=== PATIENT | male | born 1955 | race Caucasian/White ===

== ENCOUNTER 2022-01-14 13:35 | Inpatient (IN) | payer MEDICARE ==
[~2022-01-14] VITALS: Ht 165.1 cm; Wt 77.1 kg
[2022-01-14 14:27] LABS: HEMOGLOBIN 15.1 gm/dl (14.0-17.5); RED BLOOD COUNT 4.89 M/UL (4.20-5.50); WHITE BLOOD COUNT 12.7 K/UL (4.5-11.0)
[2022-01-14] MEDS ORDERED: COZAAR50 MG PO (15:16)
[2022-01-14] MEDS ORDERED: ASPIRIN EC81 MG PO (17:03)
[2022-01-14] MEDS ORDERED: ATORVASTATIN CA10 MG PO (17:03)
[2022-01-14] MEDS ORDERED: NITROGLYCERIN0.4 MG SL (19:04)
[2022-01-14] MEDS ORDERED: HEPARIN SO5000 UNIT2 IVP (19:04)
== END 2022-01-14 20:29 | disposition short-term general hospital (02) | DRG 287 ==
LOC: ER1 13:35 → CDU 15:13
PROVIDERS: Emergency Medicine; ADMIT Internal Medicine
PROC: 4A023N7 Measurement of Cardiac Sampling and Pressure, Left Heart, Percutaneous Approach (ICD-10-PCS; principal; 2022-01-14)
PROC: B2111ZZ Fluoroscopy of Multiple Coronary Arteries using Low Osmolar Contrast (ICD-10-PCS; 2022-01-14)
PROC: B24BZZZ Ultrasonography of Heart with Aorta (ICD-10-PCS; 2022-01-14)
DX: I25.110 Atherosclerotic heart disease of native coronary artery with unstable angina pectoris (principal); N17.9 Acute kidney failure, unspecified; I31.3 Pericardial effusion (noninflammatory); I10 Essential (primary) hypertension; Z20.822 Contact with and (suspected) exposure to COVID-19; Z96.698 Presence of other orthopedic joint implants; R73.9 Hyperglycemia, unspecified; I08.1 Rheumatic disorders of both mitral and tricuspid valves; J30.2 Other seasonal allergic rhinitis; Z79.01 Long term (current) use of anticoagulants; Z79.82 Long term (current) use of aspirin; Z83.3 Family history of diabetes mellitus; Z85.828 Personal history of other malignant neoplasm of skin
CPT/HCPCS: ECHO; 71045; 80053; 80061; 82550; 82553; 82962; 83036; 83880; 84484; 85025; 85347; 93005; 93306; 96374; 96375; 99152; 99153; 99285; C1769; C1887; C1894; J0461; J1644; J2250; J2270; J2405; J3010; J7040; Q9965